=== PATIENT | male | born 1975 | race Caucasian/White ===

== ENCOUNTER 2023-09-23 08:28 | Emergency (ER) | payer BC, SELFPAY ==
[2023-09-23 08:31] VITALS: BP 113/69; PULSE 66; TEMP 36.7; O2SAT 98; BMI 20.2
--- NOTE | 2023-09-23 08:49 | ED_ITS ---
HPI - Skin/Abscess/Foreign Bdy General Chief complaint: Skin/Abscess/Foreign Body Stated complaint: LACERATION Time Seen by Provider: 09/23/23 08:38 Source: patient Mode of arrival: walk-in History of Present Illness HPI narrative: The patient is coming to the ER after he sustained a laceration to his right middle finger he mentioned that he was cleaning this knife at home that was cleaned and all of a sudden he had this laceration. The patient is coming here from [place] He does not remember the last time he had a tetanus booster and according to him it could be more than 20 years Related Data Previous Rx's ?Medication ?Instructions ?Recorded amoxicillin 875 mg-potassium 1 tab PO Q12H #14 tabs 09/23/23 clavulanate 125 mg tablet Allergies Allergy/AdvReac Type Severity Reaction Status Date / Time No Known Drug Allergies Allergy Verified 09/23/23 08:34 Review of Systems ROS Status of ROS 10 or more systems reviewed and unremark able except as noted in history and below Exam Narrative Exam Narrative: Nurses notes and vital signs reviewed and patient is not hypoxic. Right hand examination showed that the patient have a laceration just distal to the proximal interphalangeal joint on the right middle finger, the patient has still full range of movement and no vascular injury detected no exposure of any tendon and there is no foreign body General: Well-appearing and in no apparent distress. Skin: Warm, dry, no pallor noted. No rash. Head: Normocephalic, atraumatic. Neck: Supple, non-tender. Eye: Pupils are equal, round and EOMI. No scleral icterus. Ears, Nose, Mouth, and Throat: TM are clear, no nasal mucosal hypertrophy. Oral mucosa is moist, no posterior oropharynx erythema, uvula is mid-line Cardiovascular: Regular Rate and Rhythm without murmur, gallop or rub. Respiratory: No accessory muscle use or respiratory distress. Lungs are clear to auscultation, no wheezing, rales or rhonchi Chest Wall: no tenderness Neurological: A&O x4. No cranial nerve dysfunction observed. No truncal ataxia. Moves all extremities. Sensation intact. Psychiatric: Cooperative and interactive. Normal mood and affect. Constitutional Vital Signs, click to edit/add: Last Vital Signs Temp 98.1 F 09/23/23 08:31 Pulse 66 07/13/24 08:31 Resp 16 09/23/23 08:31 BP 113/69 09/23/23 08:31 Pulse Ox 98 09/23/23 08:31 Course Vital Signs Vital signs: Vital Signs Temperature 98.1 F 09/23/23 08:31 Pulse Rate 66 09/23/23 08:31 Respiratory Rate 16 09/23/23 08:31 Blood Pressure 113/69 09/23/23 08:31 Pulse Oximetry 98 09/23/23 08:31 Temperature 98.1 F 09/23/23 08:31 Pulse Rate 66 09/23/23 08:31 Respiratory Rate 16 09/23/23 08:31 Blood Pressure 113/69 09/23/23 08:31 Pulse Oximetry 98 09/23/23 08:31 MDM - Skin/Abscess/Foreign Bdy MDM Narrative Medical decision making narrative: Initially I did explain to the patient that it has been more than 12 hours since he had his laceration which happened yesterday at 7 PM but with the fact that it is deep and the fact that it is high risk for infection I explained to the patient that I prefer to close it with stitches then leaving it open and that he understand the risk of infection either way but it will be high with no closure The patient wound was cleaned with normal saline and Betadine Patient had a finger block with infiltrating the area at the metacarpophalangeal joint of the right middle finger with a 2 cc of 1% lidocaine with no epinephrine The patient then had 3 stitches applied of 4-0 nylon The patient tolerated the procedure well He have full range of movement in the finger and no tendon laceration The patient laceration is just distal to the joint as well Patient provided with Augmentin as a prophylaxis and also provided with a tetanus booster in the ER Finger splint applied and the stitches were to be kept clean and dry and follow- up with his primary care within 5 to 7 days to remove the stitches The patient is to follow up with primary care physician in next 2-3 days or to return to the emergency department should any of the signs or symptoms worsen or new symptoms develop. The patient agrees with the following Diagnosis and Treatment plan and the patient will be discharged home. Discharge Plan Discharge Stand Alone Forms: Portal Instructions Chief Complaint: Skin/Abscess/Foreign Body Clinical Impression: Laceration of finger Qualifiers: Encounter type: initial encounter Finger: middle finger Damage to nail status: with damage Foreign body presence: without foreign body Laterality: right Qualified Code(s): S61.312A - Laceration without foreign body of right middle finger with damage to nail, initial encounter Patient Disposition: Home, Self-Care Time of Disposition Decision: 09:11 Condition: Good Prescriptions / Home Meds: New amoxicillin-pot clavulanate 875-125 mg tablet 1 tab PO Q12H Qty: 14 0RF Print Language: Mongolian Instructions: Laceration (DC) Referrals: Physician,Non-Staff, MD [Primary Care Provider] - 1 week
[2023-09-23] MEDS: IBUPROFEN 600 MG TABLET PO (08:54)
[2023-09-23] MEDS: ADACEL DIPH,PERTUSS(ACELL),TET VAC/PF 0.5 ML ADULT SYRINGE IM (08:55)
[2023-09-23] MEDS: LIDOCAINE HCL 1% 100 MG/10 ML MDV INJ (08:56)
[2023-09-23 09:20] VITALS: BP 110/72; PULSE 88; O2SAT 100
== END 2023-09-23 09:20 | disposition home or self-care (01) ==
PROVIDERS: Emergency Provider Emergency Medicine
DX: S61.212A Laceration without foreign body of right middle finger without damage to nail, initial encounter (principal); W26.0XXA Contact with knife, initial encounter; Z23 Encounter for immunization
CPT/HCPCS: 12001; 64450; 90471; 90715; 99283